=== PATIENT | female | born 2005 | race Caucasian/White ===

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

== ENCOUNTER 2024-11-30 20:43 | Emergency (ER) | payer MEDICAID, OTHER | END 2024-11-30 21:30 | disposition home or self-care (01) | LOC: KA.ED 20:43 | DX: M53.3 Sacrococcygeal disorders, not elsewhere classified (principal); Z79.899 Other long term (current) drug therapy | CPT/HCPCS: 99283; A9270-GY ==